=== PATIENT | female | born 2000 | race Hispanic/Latino ===

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

== ENCOUNTER 2020-03-24 16:50 | Emergency (ER) | payer SELFPAY ==
[2020-03-24 23:21] LABS: SARS-CoV-2 PCR by NAA Not Detected (NotDetected)
== END 2020-03-24 17:31 | disposition home or self-care (01) ==
LOC: ERS 16:50
DX: R43.8 Other disturbances of smell and taste (principal); Z20.822 Contact with and (suspected) exposure to COVID-19; F17.290 Nicotine dependence, other tobacco product, uncomplicated
CPT/HCPCS: 87635; 99283; U0003; U0005